=== PATIENT | male | born 1995 | race Hispanic/Latino ===

== ENCOUNTER 2021-10-12 20:31 | Emergency (ER) | payer SELFPAY ==
[~2021-10-12] VITALS: Ht 170.2 cm; Wt 90.7 kg
[2021-10-12 21:41] VITALS: BP 155/89
== END 2021-10-12 21:43 | disposition home or self-care (01) ==
LOC: ER 21:14
DX: N50.811 Right testicular pain (principal); K40.90 Unilateral inguinal hernia, without obstruction or gangrene, not specified as recurrent; R10.31 Right lower quadrant pain
CPT/HCPCS: 99282

== ENCOUNTER 2021-10-17 00:40 | Emergency (ER) | payer SELFPAY ==
[~2021-10-17] VITALS: Ht 170.2 cm; Wt 90.7 kg
[2021-10-17 03:31] VITALS: BP 138/99
== END 2021-10-17 03:46 | disposition home or self-care (01) ==
LOC: ER 00:57
DX: N50.812 Left testicular pain (principal); N50.811 Right testicular pain; K40.90 Unilateral inguinal hernia, without obstruction or gangrene, not specified as recurrent
CPT/HCPCS: 76870; 93976; 99283